=== PATIENT | female | born 1985 | race Two or more races ===

== ENCOUNTER 2024-11-24 18:40 | Inpatient (IN) | payer MEDICAID, OTHER ==
[~2024-11-24] VITALS: Ht 157.5 cm; Wt 78.0 kg
--- NOTE | 2024-11-24 18:58 | ED.PDOC ---
GI ASSESSMENT HPI Comments 39 y.o female presents to the ED for a chief complaint of left sided abdominal pain that has been ongoing for a couple of days. Patient reports having bariatric surgery 2 weeks ago in [place] and recently pulled the drainage tubes out herself at home. Patient reports there was no more draining. She denies any fever, chills, nausea, vomiting, diarrhea, SOB or chest pain. 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 Family History Family History: Family hx of DM Social History Smoker: Non-Smoker Alcohol: Denies ETOH Use Drugs: Marijuana Lives In: Home Constitutional: denies: chills, diaphoresis, fatigue, fever, malaise, sweats, weakness, others EENTM: denies: blurred vision, double vision, ear bleeding, ear discharge, ear drainage, ear pain, ear ringing, eye pain, eye redness, hearing loss, mouth pain, mouth swelling, nasal discharge, nose bleeding, nose congestion, nose pain, photophobia, tearing, throat pain, throat swelling, voice changes, others Respiratory: denies: cough, hemoptysis, orthopnea, SOB at rest, shortness of breath, SOB with excertion, stridor, wheezing, others Cardiovascular: denies: chest pain, dizzy spells, diaphoresis, Dyspnea on exertion, edema, irregular heart beat, left arm pain, lightheadedness, palpitations, PND, syncope, others Gastrointestinal: reports: abdominal pain; denies: abdomen distended, blood streaked bowels, constipated, diarrhea, dysphagia, difficulty swallowing, hematemesis, melena, nausea, poor appetite, poor fluid intake, rectal bleeding, rectal pain, vomiting, others Genitourinary: denies: abnormal vagina bleeding, burning, dyspareunia, dysuria, flank pain, frequency, hematuria, incontinence, pain, , vagina discharge, urgency, others Neurological: denies: dizziness, fainting, headache, left sided numbness, left sided weakness, numbness, paresthesia, pre-existing deficit, right sided numbness, right sided weakness, seizure, speech problems, tingling, tremors, weakness, others Musculoskeletal: denies: back pain, gout, joint pain, joint swelling, muscle pain, muscle stiffness, neck pain, others Integumetry: denies: bruises, change in color, change in hair/nails, dryness, laceration, lesions, lumps, rash, wounds, others Allergic/Immunocompromised: denies: Difficulty Healing, Frequent Infections, Hives, Itching, others Hematologic/Lymphatic: denies: anemia, blood clots, easy bleeding, easy bruising, swollen glands, others Endocrine: denies: excessive hunger, excessive sweating, excessive thirst, excessive urination, flushing, intolerance to cold, intolerance to heat, unexplained weight gain, unexplained weight loss, others Psychiatric: denies: anxiety, bipolar disorder, depression, hopeless, panic disorder, schizophrenia, sleepless, suicidal, others All Other Systems: Reviewed and Negative Physical Exam General Appearance: Moderate Distress HEENT: Normal ENT Inspection, Pharynx Normal, TMs Normal Neck: Full Range of Motion, Non-Tender, Normal, Normal Inspection Respiratory: Chest Non-Tender, Lungs Clear, No Accessory Muscle Use, No Respiratory Distress, Normal Breath Sounds Cardiovascular: No Edema, No JVD, No Murmur, No Gallop, Normal Peripheral Pulses, Regular Rate/Rhythm Breast Exam: Deferred Gastrointestinal: LLQ, LUQ, No Organomegaly, No Pulsatile Mass, Normal Bowel Sounds, Soft, Tenderness Genitalia: Deferred Pelvic: Deferred Rectal: Deferred Extremities: No calf tenderness, Normal capillary refill, Normal inspection, Normal range of motion, Non-tender, No pedal edema Musculoskeletal : Apperance: Normal Neurologic: Alert, 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 Was a procedure done?: No GI differential Dx Differential Diagnosis: Bowel Obstruction, Gastritis/PUD, Gastroenteritis, Ischemic Bowel, Trauma intraabdominal X-Ray, Labs, Meds, VS Vital Signs Date Time Temp Pulse Resp B/P (MAP) Pulse Ox O2 Delivery O2 Flow Rate FiO2 11/24/24 20:32 81 18 148/83 (104) 95 11/24/24 20:23 81 19 148/83 11/24/24 20:03 98 Room Air* 0 21 11/24/24 19:53 91 19 167/89 11/24/24 19:53 90 19 167/89 (115) 99 11/24/24 18:56 99.4 95 16 153/94 (113) 99 99.4 Lab Test 11/24/24 19:04 11/24/24 18:52 Range/Units White Blood Count 9.1 4.4-10.8 10^3/uL Red Blood Count 4.48 4.0-5.20 10^6/uL Hemoglobin 14.0 12.2-16.2 g/dL Hematocrit 40.7 36.0-46.0 % Mean Corpuscular Volume 90.9 80.0-100.0 fL Mean Corpuscular Hemoglobin 31.3 28.0-32.0 pg Mean Corpuscular Hemoglobin Concent 34.4 32.0-36.0 g/dL Red Cell Distribution Width 13.7 11.8-14.3 % Platelet Count 318 140-450 10^3/uL Mean Platelet Volume 8.9 6.9-10.8 fL Neutrophils (%) (Auto) 65.4 37.0-80.0 % Lymphocytes (%) (Auto) 26.3 10.0-50.0 % Monocytes (%) (Auto) 4.9 0.0-12.0 % Eosinophils (%) (Auto) 2.8 0.0-7.0 % Basophils (%) (Auto) 0.6 0.0-2.0 % Neutrophils # (Auto) 5.9 1.6-8.6 10 ^3/uL Lymphocytes # (Auto) 2.4 0.4-5.4 10 ^3/uL Monocytes # (Auto) 0.4 0-1.3 10 ^3/uL Eosinophils # (Auto) 0.3 0-0.8 10 ^3/uL Basophils # (Auto) 0.1 0-0.2 10 ^3/uL Nucleated Red Blood Cells 0.0 % Sodium Level 138 136-145 mmol/L Potassium Level 3.8 3.5-5.1 mmol/L Chloride Level 108 H 98-107 mmol/L Carbon Dioxide Level 21 20-31 mmol/L Anion Gap 9 5-15 Blood Urea Nitrogen 8 L 9-23 mg/dL Creatinine 0.49 L 0.550-1.02 mg/dL Glomerular Filtration Rate Calc 121 >90 mL/min BUN/Creatinine Ratio 16.3 10.0-20.0 Serum Glucose 111 H 74-106 mg/dL Calcium Level 9.3 8.7-10.4 mg/dL Urine Color Yellow Yellow Urine Clarity Turbid H Clear Urine pH 6.0 5.0-9.0 Urine Specific [place] 1.035 1.001-1.035 Urine Protein Trace H Negative Urine Ketones 2+ H Negative Urine Blood Trace H Negative /uL Urine Nitrite Negative Negative Urine Bilirubin Negative Negative Urine Urobilinogen 3 H Negative mg/dL Urine Leukocyte Esterase Negative Negative /uL Urine RBC 3 0 - 4 /hpf Urine Microscopic WBC 2 0-5 /HPF Urine Squamous Epithelial Cells Mod <5 /hpf Urine Bacteria Few H None Seen /hpf Urine Hyaline Casts Few 0 - 2 /lpf Urine Mucus Few None Seen Urine Glucose Normal Normal mg/dL Current Medications Medications (Trade) Dose Ordered Sig/Bernie Route Start Time Stop Time Status Last Admin Ondansetron HCl (Zofran) 4 mg ONCE ONCE IV 11/24/24 19:00 11/24/24 19:01 DC 11/24/24 19:52 Morphine Sulfate 4 mg ONCE ONCE IV 11/24/24 19:00 11/24/24 19:01 DC 11/24/24 19:53 IV Hep-Lock was established The urine test is negative at this time The patient was given morphine 4 mg IV push for the pain The patient was given Zofran 4 mg IV push for the nausea The CBC and chemistry panel are within normal limits The CAT scan of the abdomen and pelvis shows: Impression: 1. Status post recent sleeve gastrectomy with presumably postoperative pneumoperitoneum. Mild stranding in the operative site may reflect postsurgical inflammation versus developing infectious process. Further clinical correlation is recommended. 2. Stranding within the left anterior abdominal wall may be referable to inflammatory changes from recent procedure, though infectious process cannot be excluded. 3. Additional findings as detailed. Critical Result: Pneumoperitoneum (free air) We are consulting surgery at this time The patient is being admitted The patient is being placed on Flagyl and vancomycin Images Reviewed?: Images reviewed and evaluated by me Time of 1ST Reevaluation: 18:58 Reevaluation 1ST: Unchanged Patient Education/Counseling: Diagnosis, Treatment, Prognosis Family Education/Counseling: No Family Present SEPSIS Sepsis Screen Physician Orders Ct Ab Pel With Iv Con Only (11/24/24 18:55) Heplock Iv (11/24/24 18:55) *Consult Dr. Berry (11/24/24 21:23) Vital Signs Date Time Temp Pulse Resp B/P (MAP) Pulse Ox O2 Delivery O2 Flow Rate FiO2 11/24/24 20:32 81 18 148/83 (104) 95 11/24/24 20:23 81 19 148/83 11/24/24 20:03 98 Room Air* 0 21 11/24/24 19:53 91 19 167/89 11/24/24 19:53 90 19 167/89 (115) 99 11/24/24 18:56 99.4 95 16 153/94 (113) 99 99.4 Laboratory Tests Test 11/24/24 19:04 White Blood Count 9.1 10^3/uL (4.4-10.8) Medications Medications Dose Ordered Sig/Bernie Route Start Time Stop Time Status Last Admin Dose Admin Morphine Sulfate 4 mg ONCE ONCE IV 11/24/24 19:00 11/24/24 19:01 DC 11/24/24 19:53 Ondansetron HCl 4 mg ONCE ONCE IV 11/24/24 19:00 11/24/24 19:01 DC 11/24/24 19:52 Departure 1 Departure Time of Disposition: 21:23 Impression: Primary Impression: Intractable abdominal pain Disposition: 09 ADMITTED INPATIENT Admit to: Med Surg Condition: Fair Critical Care Note Critical Care Time?: No Stability Stability form required: Yes Unstable for transfer: ED Physician Assesment (Clinical assesment) I personally scribed for RICARDO DURAN MD ([email or web address]) on 11/24/24 at 18:58. Electronically submitted by Adelita Rust ([email or web address]). I personally scribed for RICARDO DURAN MD ([email or web address]) on 11/24/24 at 21:19. Electronically submitted by Bossman Esteban ([email or web address]). RICARDO DURAN MD Nov 24, 2024 18:58
[2024-11-24 19:18] LABS: Hematocrit 40.7 % (36.0-46.0); Hemoglobin 14.0 g/dL (12.2-16.2); Mean Corpuscular Hemoglobin 31.3 pg (28.0-32.0); Mean Corpuscular Volume 90.9 fL (80.0-100.0); Nucleated Red Blood Cells % 0.0 %
[2024-11-24 19:25] LABS: Potassium 3.8 mmol/L (3.5-5.1); Sodium 138 mmol/L (136-145)
[2024-11-24 19:26] LABS: Anion Gap 9 (5-15); Calcium 9.3 mg/dL (8.7-10.4); Carbon Dioxide 21 mmol/L (20-31)
[2024-11-24 19:29] LABS: Chloride 108 mmol/L (98-107)
[2024-11-24 19:31] LABS: BUN/Creatinine Ratio 16.3 (10.0-20.0); Blood Urea Nitrogen 8 mg/dL (9-23); Glucose 111 mg/dL (74-106)
[2024-11-24] MEDS: ONDANSETRON HCL 4 MG/2 ML VIAL IV ONE (19:52)
[2024-11-24] MEDS: MORPHINE SULFATE 4 MG/ML SYR/VIAL IV ONE (19:53)
[2024-11-24 20:03] VITALS: O2SAT 98
[2024-11-24 20:05] LABS: Urine Protein, UAD TRACE (Negative)
[2024-11-24] MEDS: IOHEXOL 300 MG/ML 100ML BOTTLE IJ ONE (20:14)
--- NOTE | 2024-11-24 21:21 | DVH ---
Exam: CT CT AB PEL WITH IV CON ONLY History: Left-sided abdominal pain Comparison Study: None TECHNIQUE: A digital medical imaging tech image was obtained. During the uneventful, intravenous administration of c ontrast material, multislice data acquisition was obtained through the abdomen and pelvis. The data s et was subsequently reconstructed into multiplanar reformats. RADIATION DOSE: CTDI vol 14.54 mGy. DLP mGy.cm Findings: Liver: Unremarkable. Spleen: Unremarkable. Pancreas: Unremarkable. Gallbladder: Unremarkable. Adrenals: Unremarkable Kidneys: Unremarkable. Pelvic Viscera: 2.2 cm right adnexal cyst. Vasculature: Unremarkable. Retroperitoneum: Shotty retroperitoneal nodes. Bowel: Status post recent sleeve gastrectomy with mild adjacent stranding. There is pneumoperitoneum most pronounced within the upper abdomen. Musculoskeletal: Unremarkable. Soft tissues: There is a low-density rim enhancing small region in the left anterior abdominal wall m easuring 6 mm in greatest thickness, with adjacent stranding which appears to extend to the skin surf billie. Lungs: The lung bases are clear. Bilateral breast implants. Impression: 1. Status post recent sleeve gastrectomy with presumably postoperative pneumoperitoneum. Mild strandi ng in the operative site may reflect postsurgical inflammation versus developing infectious process. Further clinical correlation is recommended. 2. Stranding within the left anterior abdominal wall may be referable to inflammatory changes from re cent procedure, though infectious process cannot be excluded. 3. Additional findings as detailed. Critical Result: Pneumoperitoneum (free air) Findings discussed with RICARDO DURAN at 11/24/2024 09:16 PM, and acknowledged receipt and understand ing of the findings.
--- NOTE | 2024-11-25 00:24 | DVHHP2 ---
History of Present Illness Reason for Visit: Abdominal pain History of Present Illness 39-year-old female presents for evaluation of left-sided abdominal pain. Patient reports having bariatric surgery in [place] two weeks ago. Patient was discharged with a YOU drain to her left abdomen. She states that since (three days ago) she has been having left-sided pain at the YOU drain site. She states that Monday the pain continued so she pulled the YOU drain out since there was hardly any drainage. She reports having continuous sharp pain at the drain site. Denies fever or chills. No nausea or vomiting. No other acute complaints. Past Medical History Denies Past Surgical History , bariatric surgery Family History Noncontributory Smoke: No ALCOHOL: none Drugs: Marijuana Lives: with Family Review of Systems Review of Systems Review of systems are currently negative otherwise addressed in HPI. Allergies: Coded Allergies: NO KNOWN ALLERGIES (Unverified , 11/24/24) Exam Vital Signs Vital Signs Date Time Temp Pulse Resp B/P (MAP) Pulse Ox O2 Delivery O2 Flow Rate FiO2 11/24/24 20:32 81 18 148/83 (104) 95 11/24/24 20:03 Room Air* 0 21 11/24/24 18:56 99.4 99.4 Exam Gen: 39-year-old female in mild distress Skin: Warm, dry, normal color and texture, no rash. HEENT: Normocephalic atraumatic, mucous membranes moist and pink. Neck: Cervical and supraclavicular nodes normal without enlargement, trachea is midline, thyroid gland is normal without masses. Pulmonary: Clear to auscultation and percussion bilaterally. Cardiac: Regular rate and rhythm. No murmur Abdomen: Soft, nontender, nondistended, bowel sounds present all 4 quadrants, no guarding, no rigidity, no organomegaly. Extremities: No cyanosis, clubbing, left mid abdomen tenderness Neuro: Cranial nerves II through XII grossly intact, normal affect and speech, no focal motor deficits. Labs/Xrays ORDERING PHYSICIAN: RICARDO DURAN MD PROCEDURE(s): ABPLIV - CT AB PEL WITH IV CON ONLY REASON: Left-sided abdominal pain ORDER NUMBER(s): [id number], ACCESSION NUMBER(s): [id number] Exam: CT CT AB PEL WITH IV CON ONLY History: Left-sided abdominal pain Comparison Study: None TECHNIQUE: A digital junior administrative assistant image was obtained. During the uneventful, intravenous administration of contrast material, multislice data acquisition was obtained through the abdomen and pelvis. The data set was subsequently reconstructed into multiplanar reformats. RADIATION DOSE: CTDI vol 14.54 mGy. DLP mGy.cm Findings: Liver: Unremarkable. Spleen: Unremarkable. Pancreas: Unremarkable. Gallbladder: Unremarkable. Adrenals: Unremarkable Kidneys: Unremarkable. Pelvic Viscera: 2.2 cm right adnexal cyst. Vasculature: Unremarkable. Retroperitoneum: Shotty retroperitoneal nodes. Bowel: Status post recent sleeve gastrectomy with mild adjacent stranding. There is pneumoperitoneum most pronounced within the upper abdomen. Musculoskeletal: Unremarkable. Soft tissues: There is a low-density rim enhancing small region in the left anterior abdominal wall measuring 6 mm in greatest thickness, with adjacent stranding which appears to extend to the skin surface. Lungs: The lung bases are clear. Bilateral breast implants. Impression: 1. Status post recent sleeve gastrectomy with presumably postoperative pneumoperitoneum. Mild stranding in the operative site may reflect postsurgical inflammation versus developing infectious process. Further clinical correlation is recommended. 2. Stranding within the left anterior abdominal wall may be referable to inflammatory changes from recent procedure, though infectious process cannot be excluded. 3. Additional findings as detailed. Critical Result: Pneumoperitoneum (free air) Findings discussed with RICARDO DURAN at 11/24/2024 09:16 PM, and acknowledged receipt and understanding of the findings. ATED BY: SMITA STARK MD Labs Test 11/24/24 19:04 11/24/24 18:52 Range/Units White Blood Count 9.1 4.4-10.8 10^3/uL Red Blood Count 4.48 4.0-5.20 10^6/uL Hemoglobin 14.0 12.2-16.2 g/dL Hematocrit 40.7 36.0-46.0 % Mean Corpuscular Volume 90.9 80.0-100.0 fL Mean Corpuscular Hemoglobin 31.3 28.0-32.0 pg Mean Corpuscular Hemoglobin Concent 34.4 32.0-36.0 g/dL Red Cell Distribution Width 13.7 11.8-14.3 % Platelet Count 318 140-450 10^3/uL Mean Platelet Volume 8.9 6.9-10.8 fL Neutrophils (%) (Auto) 65.4 37.0-80.0 % Lymphocytes (%) (Auto) 26.3 10.0-50.0 % Monocytes (%) (Auto) 4.9 0.0-12.0 % Eosinophils (%) (Auto) 2.8 0.0-7.0 % Basophils (%) (Auto) 0.6 0.0-2.0 % Neutrophils # (Auto) 5.9 1.6-8.6 10 ^3/uL Lymphocytes # (Auto) 2.4 0.4-5.4 10 ^3/uL Monocytes # (Auto) 0.4 0-1.3 10 ^3/uL Eosinophils # (Auto) 0.3 0-0.8 10 ^3/uL Basophils # (Auto) 0.1 0-0.2 10 ^3/uL Nucleated Red Blood Cells 0.0 % Sodium Level 138 136-145 mmol/L Potassium Level 3.8 3.5-5.1 mmol/L Chloride Level 108 H 98-107 mmol/L Carbon Dioxide Level 21 20-31 mmol/L Anion Gap 9 5-15 Blood Urea Nitrogen 8 L 9-23 mg/dL Creatinine 0.49 L 0.550-1.02 mg/dL Glomerular Filtration Rate Calc 121 >90 mL/min BUN/Creatinine Ratio 16.3 10.0-20.0 Serum Glucose 111 H 74-106 mg/dL Calcium Level 9.3 8.7-10.4 mg/dL Urine Color Yellow Yellow Urine Clarity Turbid H Clear Urine pH 6.0 5.0-9.0 Urine Specific [place] 1.035 1.001-1.035 Urine Protein Trace H Negative Urine Ketones 2+ H Negative Urine Blood Trace H Negative /uL Urine Nitrite Negative Negative Urine Bilirubin Negative Negative Urine Urobilinogen 3 H Negative mg/dL Urine Leukocyte Esterase Negative Negative /uL Urine RBC 3 0 - 4 /hpf Urine Microscopic WBC 2 0-5 /HPF Urine Squamous Epithelial Cells Mod <5 /hpf Urine Bacteria Few H None Seen /hpf Urine Hyaline Casts Few 0 - 2 /lpf Urine Mucus Few None Seen Urine Glucose Normal Normal mg/dL SEPSIS Sepsis Screen Date sepsis recognized/suspect: Nov 24, 2024 Time Sepsis recognized/suspect: 1958 Recent Procedure: No On Antibiotic Therapy: No Respiratory Rate >20: No Heart Rate >90: Yes Temp<36 C (96.8 F) or >38.3 C: No SBP <90 or MAP <65 mmHG: No New Acute Mental Status Change: No Is the patient on CPAP, BIPAP,: No Physician Orders Ct Ab Pel With Iv Con Only (11/24/24 18:55) Heplock Iv (11/24/24 18:55) *Consult Dr. Berry (11/24/24 21:23) Vital Signs Date Time Temp Pulse Resp B/P (MAP) Pulse Ox O2 Delivery O2 Flow Rate FiO2 11/24/24 20:32 81 18 148/83 (104) 95 11/24/24 20:23 81 19 148/83 11/24/24 20:03 98 Room Air* 0 21 11/24/24 19:53 91 19 167/89 11/24/24 19:53 90 19 167/89 (115) 99 11/24/24 18:56 99.4 95 16 153/94 (113) 99 99.4 Laboratory Tests Test 11/24/24 19:04 White Blood Count 9.1 10^3/uL (4.4-10.8) Medications Medications Dose Ordered Sig/Bernie Route Start Time Stop Time Status Last Admin Dose Admin Morphine Sulfate 4 mg ONCE ONCE IV 11/24/24 19:00 11/24/24 19:01 DC 11/24/24 19:53 4 MG Ondansetron HCl 4 mg ONCE ONCE IV 11/24/24 19:00 11/24/24 19:01 DC 11/24/24 19:52 4 MG Assessment/Plan Assessment/Plan Assessment Pneumoperitoneum Pulse surgical complication Plan Admit the patient to [facility] to the hospitalist Surgical consultation Maintenance IV fluids NPO Pain management Zosyn Continue treatment per orders. Plan discussed with: Patient Date of Service: Nov 25, 2024 Billing Provider: ERNESTO RODRIGUEZ Common Visit Codes: [id number] INP/OBS CARE (HIGH) ERNESTO RODRIGUEZ Nov 25, 2024 00:24
[2024-11-25] MEDS: SODIUM CHLORIDE 0.9% 1,000 ML IV ONE (00:45)
[2024-11-25 01:15] LABS: INR 1.02 (0.9-1.15); Partial Thromboplastin Time 31.8 SEC (24.5-34.5); Prothrombin Time 10.8 sec (9.3-11.8)
[2024-11-25] MEDS: MORPHINE SULFATE INJ 2 MG/ml SYRG IV PRN (02:30)
[2024-11-25] MEDS: ONDANSETRON HCL 4 MG/2 ML VIAL IV PRN (02:30)
[2024-11-25 03:40] VITALS: BP 121/73; PULSE 62; RESP 16; TEMP 98.3; O2SAT 97
[2024-11-25 04:15] VITALS: BP 121/73; PULSE 62; RESP 17; TEMP 98.3; O2SAT 97
[2024-11-25] MEDS: PIPERACILLIN-TAZOB 3.375GM 100 ML IV SCH (05:25)
[2024-11-25 05:37] LABS: Hematocrit 39.9 % (36.0-46.0); Hemoglobin 13.8 g/dL (12.2-16.2); Mean Corpuscular Hemoglobin 31.5 pg (28.0-32.0); Mean Corpuscular Volume 91.3 fL (80.0-100.0); Nucleated Red Blood Cells % 0.1 %
[2024-11-25 05:48] LABS: Alanine Aminotransferase 15 U/L (7-40); Albumin 4.2 g/dL (3.2-4.8); Alkaline Phosphatase 70 U/L (46-116); Anion Gap 11 (5-15); BUN/Creatinine Ratio 12.8 (10.0-20.0); Calcium 9.3 mg/dL (8.7-10.4); Carbon Dioxide 24 mmol/L (20-31); Chloride 105 mmol/L (98-107); Glucose 87 mg/dL (74-106); Sodium 140 mmol/L (136-145); Total Protein 6.7 g/dL (5.7-8.2)
[2024-11-25 05:49] LABS: Bilirubin, Total 0.3 mg/dL (0.2-1.0)
[2024-11-25 06:00] LABS: Blood Urea Nitrogen 6 mg/dL (9-23); Potassium 3.4 mmol/L (3.5-5.1)
[2024-11-25] MEDS: PANTOPRAZOLE 40 MG/10 ML VIAL INJ IV SCH (08:54)
[2024-11-25 09:00] VITALS: BP 120/77; PULSE 52; RESP 14; TEMP 98.2; O2SAT 98
[2024-11-25] MEDS ORDERED: POTASSIUM EFFERVESENT TAB 25 MEQ PO ONE (09:30)
[2024-11-25] MEDS ORDERED: NAPROXEN 500 MG TAB PO PRN (09:45)
[2024-11-25] MEDS: POTASSIUM CHL 20MEQ/100ML 100 ML IV ONE (11:18)
[2024-11-25] MEDS ORDERED: GASTROGRAFIN 120 ML SOL ONE (11:56)
[2024-11-25 13:00] VITALS: BP_SYST 102; BP_SYST 105; BP_DIAS 43; BP_DIAS 67; PULSE 54; PULSE 60; RESP 14; TEMP 97.9; TEMP 98.2; O2SAT 98; O2SAT 99
--- NOTE | 2024-11-25 13:01 | DVH ---
XY UGI WITH GASTROGRAFIN, HISTORY: r/o extravasation from sleeve gastrectomy COMPARISON: None PROCEDURE: A legal instruments examiner radiograph was obtained prior to the procedure. Gastrografin administered orally, and radiographs were obtained under intermittent fluoroscopic observation. Total fluoroscopic time w as 1 minute. FINDINGS: The legal instruments examiner image demonstrates no evidence for obstruction or free intraperitoneal gas. Surgical suture s are seen in the LUQ. The esophagus was normal in caliber with no stricture, filling defect or wall irregularity demonstrat ed. Normal esophageal peristalsis was observed. There was prompt passage of contrast through gastroesophageal junction. The stomach was not distended due to the partial gastrectomy. A filling defect in the proximal stomach at the lesser curvature is probably due to a mucosal fold. The duodenal bulb demonstrated no stricture or ulceration. Contrast flowed into more distal loops of small bowel, with no abnormality identified. No extravasation is seen. IMPRESSION: Stomach was not distended due to the partial gastrectomy. No contrast extravasation visualized to suggest for leak. A filling defect in the proximal stomach at the lesser curvature is probably due to a mucosal fold.
--- NOTE | 2024-11-25 14:28 | DVHINCON2 ---
Date of service: Nov 25, 2024 Reason for Consultation s/p gastrectomy, abdominal pain History of Present Illness History Source: Patient, Notes HPI 39-year-old female presents for evaluation of left-sided abdominal pain. Patient reports having bariatric surgery in [place] two weeks ago. Patient was discharged with a YOU drain to her left abdomen. She states that since (three days ago) she has been having left-sided pain at the YOU drain site. She states that Monday the pain continued so she pulled the YOU drain out since there was hardly any drainage. She reports having continuous sharp pain at the drain site. Denies fever or chills. No nausea or vomiting. No other acute complaints. Home Meds No Active Prescriptions or Reported Meds Chief Complaint of Abdominal/F: Abdominal pain Abdominal Pain Radiation: LLQ Past Medical History Cardiac: No pertinent Hx Pulmonary: No pertinent Hx Central Nervous System: No pertinent Hx GI: No pertinent Hx Hemotology/Oncology: No pertinent Hx Hepatobiliary: No pertinent Hx Psychiatric: No pertinent Hx Musculoskeletal: No pertinent Hx Rheumotologic: No pertinent Hx Infectious Disease: No peritnent Hx ENT: No pertinent Hx Renal/: No pertinent Hx Endocrine: No pertinent Hx Dermatology: No pertinent Hx Past Surgical History: Others bariatric surgery Patient Family History: Hypertension G8 MOTHER Smoker: No Hx (Negative) Alocohol: None Drugs: Marijuana Lives with: With family Review of Systems Constitutional: No symptom reported Ears, Nose, & Throat: No symptom reported Eyes: No symptom reported Pulmonary/Respiratory: No symptom reported Cardiovascular: No symptom reported Gastrointestinal: Abdominal Pain (left side) Genitourinary: No symptom reported Musculoskeletal: No symptom reported Skin: No symptom reported Psychiatric: No symptom reported Endocrine: No symptom reported Hemotologic/Lymphatic: No symptom reported H&P Exam Vital Signs Vital Signs Date Time Temp Pulse Resp B/P (MAP) Pulse Ox O2 Delivery O2 Flow Rate FiO2 11/25/24 13:00 98.2 60 14 105/43 (63) 99 98.2 11/25/24 08:04 Room Air* 0 21 General Appeara: Well developed, Well nourished, Normal Appearance Head Exam: Normal inspection Neck Exam: Normal inspection, Non-tender Nasal Exam: Normal inspection Mouth: Normal Inspection Pulmonary/Respiratory: Normal inspection Cardiovascular/Chest: Normal inspection, Edema Abdominal Exam: Normal bowel sounds Abdominal Pain Onset Location: LLQ Back Exam: Normal inspection Neuro/Mental St: Alert, Oriented Appearance: Appropriate appearance Eye contact/ Speech: Cooperative, Good eye contact Thoughts/Psych: Normal thought pattern Skin Exam: Normal inspection Lymphatic: Normal inspection Labs/Xrays Labs Test 11/25/24 03:59 11/25/24 00:35 11/24/24 18:52 Range/Units White Blood Count 9.8 4.4-10.8 10^3/uL Red Blood Count 4.37 4.0-5.20 10^6/uL Hemoglobin 13.8 12.2-16.2 g/dL Hematocrit 39.9 36.0-46.0 % Mean Corpuscular Volume 91.3 80.0-100.0 fL Mean Corpuscular Hemoglobin 31.5 28.0-32.0 pg Mean Corpuscular Hemoglobin Concent 34.5 32.0-36.0 g/dL Red Cell Distribution Width 13.6 11.8-14.3 % Platelet Count 324 140-450 10^3/uL Mean Platelet Volume 9.4 6.9-10.8 fL Neutrophils (%) (Auto) 60.4 37.0-80.0 % Lymphocytes (%) (Auto) 31.2 10.0-50.0 % Monocytes (%) (Auto) 5.0 0.0-12.0 % Eosinophils (%) (Auto) 2.9 0.0-7.0 % Basophils (%) (Auto) 0.5 0.0-2.0 % Neutrophils # (Auto) 5.9 1.6-8.6 10 ^3/uL Lymphocytes # (Auto) 3.1 0.4-5.4 10 ^3/uL Monocytes # (Auto) 0.5 0-1.3 10 ^3/uL Eosinophils # (Auto) 0.3 0-0.8 10 ^3/uL Basophils # (Auto) 0 0-0.2 10 ^3/uL Nucleated Red Blood Cells 0.1 % Sodium Level 140 136-145 mmol/L Potassium Level 3.4 L 3.5-5.1 mmol/L Chloride Level 105 98-107 mmol/L Carbon Dioxide Level 24 20-31 mmol/L Anion Gap 11 5-15 Blood Urea Nitrogen 6 L 9-23 mg/dL Creatinine 0.47 L 0.550-1.02 mg/dL Glomerular Filtration Rate Calc 123 >90 mL/min BUN/Creatinine Ratio 12.8 10.0-20.0 Serum Glucose 87 74-106 mg/dL Calcium Level 9.3 8.7-10.4 mg/dL Total Bilirubin 0.3 0.2-1.0 mg/dL Aspartate Amino Transferase (AST) 14 13-40 U/L Alanine Aminotransferase (ALT) 15 7-40 U/L Alkaline Phosphatase 70 46-116 U/L Total Protein 6.7 5.7-8.2 g/dL Albumin 4.2 3.2-4.8 g/dL Prothrombin Time 10.8 9.3-11.8 sec Prothrombin Time INR 1.02 0.9-1.15 Activated Partial Thromboplast Time 31.8 24.5-34.5 SEC Urine Color Yellow Yellow Urine Clarity Turbid H Clear Urine pH 6.0 5.0-9.0 Urine Specific [place] 1.035 1.001-1.035 Urine Protein Trace H Negative Urine Ketones 2+ H Negative Urine Blood Trace H Negative /uL Urine Nitrite Negative Negative Urine Bilirubin Negative Negative Urine Urobilinogen 3 H Negative mg/dL Urine Leukocyte Esterase Negative Negative /uL Urine RBC 3 0 - 4 /hpf Urine Microscopic WBC 2 0-5 /HPF Urine Squamous Epithelial Cells Mod <5 /hpf Urine Bacteria Few H None Seen /hpf Urine Hyaline Casts Few 0 - 2 /lpf Urine Mucus Few None Seen Urine Glucose Normal Normal mg/dL Assessment/Plan Plan abdomen tender over YOU drain site wound, Review of XY UGI WITH GASTROGRAFIN Stomach was not distended due to the partial gastrectomy. No contrast extravasation visualized to suggest for leak. A filling defect in the proximal stomach at the lesser curvature is probably due to a mucosal fold. Plan: IV antibiotics warm compress over the area Plan discussed with: Patient Visit Coding Surgery Date of Service if different f: Nov 25, 2024 Billing Provider: NED VENTURA MD Surgery Visit Codes: [id number] INP/OBS CARE(HIGH) AGUSTINA TIRADO NP Nov 25, 2024 14:28
[2024-11-25] MEDS: D5W/SOD CHLO 0.9% 1,000 ML IV ONE (15:34)
--- NOTE | 2024-11-25 16:46 | DVHPNRES ---
Progress Note Date Seen: Nov 25, 2024 Resident Creating Document: ABDELRAHMAN AGUIRRE RESIDENT Has the PT tested + for MRSA If YES, has PT been informed?: No Medical Necessity Reason Pt with a Central, PICC or Fol: No Subjective Review of Systems This is a 39-year-old female without past relevant medical history, presents for evaluation of left-sided abdominal pain, the patient reports having bariatric surgery in [place] two weeks ago. After the surgery was discharged f with a YOU drain to her left abdomen. She states that since (three days ago) she has been having left-sided pain at the YOU drain site. She states that Monday the pain continued so she pulled the YOU drain out since there was hardly any drainage. She reports having continuous sharp pain at the drain site. Denies fever or chills, no nausea or vomiting. No other acute complaints. 11/25/24: Today, the patient was examined at the bedside. Vital signs and laboratories were reviewed and are remarkable. Surgery is onboard, they advised IV antibiotics, warm compress over the area, resume diet with full liquids. Patient denies fever, chills, nausea or vomit. We will follow up closely with this patient. ROS: Constitutional: Alert, Denies weight loss, fever and chills. HEENT: Denies changes in vision and hearing. Respiratory: Denies shortness of breath and cough Cardiovascular: Denies chest discomfort or palpitations GI: abdominal pain on left flank over surgical site, Denies nausea, vomiting and diarrhea. : Denies dysuria and urinary frequency. Musculoskeletal: Denies myalgias and joint pain Skin: Denies rash and pruritus. Neurological: Denies dizziness, headache, vision or hearing problems Objective vital signs Vital Sign Date Time Temp Pulse Resp B/P (MAP) Pulse Ox O2 Delivery O2 Flow Rate FiO2 11/25/24 13:00 98.2 60 14 105/43 (63) 99 98.2 11/25/24 08:04 Room Air* 0 21 Total Intake and Output 11/24/24 11/24/24 11/25/24 15:00 23:00 07:00 Intake Total 0 ml Output Total 0 ml Balance 0 ml medications Current Medications Medications Dose Ordered Sig/Bernie Route Start Time Stop Time Status Last Admin Dose Admin Pantoprazole Sodium 40 mg DAILY IV 11/25/24 10:00 11/25/24 08:54 40 MG Ondansetron HCl 4 mg Q4HP PRN IV 11/25/24 00:15 11/25/24 11:59 4 MG Morphine Sulfate 2 mg Q4HPRN PRN IV 11/25/24 00:15 11/25/24 12:00 2 MG Piperacillin Sod/ Tazobactam Sod 100 ml @ 25 mls/hr Q8HR IV 11/25/24 06:00 11/25/24 14:44 25 MLS/HR Naproxen 500 mg Q12HP PRN PO 11/25/24 09:45 Examination Gen: 39-year-old female in mild distress Skin: Warm, dry, normal color and texture, no rash. HEENT: Normocephalic atraumatic, mucous membranes moist and pink. Neck: Cervical and supraclavicular nodes normal without enlargement, trachea is midline, thyroid gland is normal without masses. Pulmonary: Clear to auscultation and percussion bilaterally. Cardiac: Regular rate and rhythm. No murmur Abdomen: Soft, nontender, nondistended, bowel sounds present all 4 quadrants, no guarding, no rigidity, no organomegaly. Pain localized on left flank over the surgical incision, with warm and redness over the skin. No drainage. Extremities: No cyanosis, clubbing, left mid abdomen tenderness Neuro: Cranial nerves II through XII grossly intact, normal affect and speech, no focal motor deficits. laboratory and microbiology Laboratory Tests 11/25/24 03:59 Test 11/25/24 03:59 Range/Units Serum Glucose 87 74-106 mg/dL Problem List/Assessment/Plan Problem List/Assessment/Plan Assessment/ Plan # Acute abdominal pain likely due to Infection of the surgical site. -Gatrografin series. -NPO -Surgical consult #Infection of the surgical site (Status Post bariatric surgery in [place]) Miah 2mg IV for severe pain. Ampicillin/ tazobactam IV #Rullig out Pneumoperitoneum CT scan: Status post recent sleeve gastrectomy with presumably postoperative pneumoperitoneum. Mild stranding in the operative site may reflect postsurgical inflammation versus developing infectious process. Surgical consultation: advised IV antibiotics and warm compress over the area, continue with full liquid diet. Maintenance IV fluids #Status Post bariatric surgery (in [place]) #Obesity Goals of care discussions, more than 35 minute spent. Code status:Full code Case discussed with Dr. Flower Continue treatment per orders. Plan discussed with: Patient, patient agrees with plan. Plan discussed with: Patient My Orders My Orders Orders - ABDELRAHMAN AGUIRRE Procedure Category Date Status Time Potassium & Magnesium NGA 11/25/24 In Process Levels: 14:38 D5w/Sod Chlo 0.9% PHA 11/25/24 In Process (D5w Ns 0.9%) 14:45 Complete Blood Count LAB 11/26/24 Verified 04:00 Comprehensive LAB 11/26/24 Verified Metabolic Panel 04:00 Warm Compresses ORDERS 11/25/24 Transmitted 15:30 Potassium LAB 11/25/24 Logged 16:40 Magnesium LAB 11/25/24 Logged 16:40 Magnesium LAB 11/26/24 Verified 04:00 ABDELRAHMAN AGUIRRE RESIDENT Nov 25, 2024 16:46
[2024-11-25 17:00] VITALS: BP 118/77; PULSE 74; RESP 14; TEMP 98.4; O2SAT 97
[2024-11-25 17:59] LABS: Potassium 4.2 mmol/L (3.5-5.1)
[2024-11-25 18:20] LABS: Magnesium 1.9 mg/dL (1.6-2.6)
[2024-11-25 21:00] VITALS: BP 117/76; PULSE 67; RESP 18; TEMP 98.4; O2SAT 99
[2024-11-26 01:00] VITALS: BP 113/82; PULSE 65; RESP 18; TEMP 98.5; O2SAT 99
[2024-11-26 05:00] VITALS: BP 119/82; PULSE 63; RESP 17; TEMP 98.2; O2SAT 98
[2024-11-26 05:33] LABS: Hematocrit 36.9 % (36.0-46.0); Hemoglobin 12.5 g/dL (12.2-16.2); Mean Corpuscular Hemoglobin 30.8 pg (28.0-32.0); Mean Corpuscular Volume 90.9 fL (80.0-100.0); Nucleated Red Blood Cells % 0.0 %
[2024-11-26 05:47] LABS: Alanine Aminotransferase 13 U/L (7-40); Albumin 3.9 g/dL (3.2-4.8); Alkaline Phosphatase 63 U/L (46-116); Anion Gap 8 (5-15); BUN/Creatinine Ratio 10.5 (10.0-20.0); Bilirubin, Total 0.5 mg/dL (0.2-1.0); Calcium 9.7 mg/dL (8.7-10.4); Carbon Dioxide 26 mmol/L (20-31); Chloride 105 mmol/L (98-107); Glucose 96 mg/dL (74-106); Magnesium 1.9 mg/dL (1.6-2.6); Sodium 139 mmol/L (136-145); Total Protein 6.2 g/dL (5.7-8.2)
[2024-11-26 05:50] LABS: Blood Urea Nitrogen 6 mg/dL (9-23); Potassium 3.5 mmol/L (3.5-5.1)
[2024-11-26 08:56] VITALS: BP 122/80; PULSE 60; RESP 18; TEMP 98.5; O2SAT 97
[2024-11-26 13:30] VITALS: BP 134/88; PULSE 60; RESP 18; TEMP 98.3; O2SAT 98
[2024-11-26] MEDS ORDERED: AUG875T PO (14:24)
[2024-11-26] MEDS ORDERED: NAP500T PO (14:25)
--- NOTE | 2024-11-26 16:12 | DVHDSRES ---
Discharge Summary Date of Admission Resident Creating Document: ABDELRAHMAN AGUIRRE RESIDENT Nov 25, 2024 at 00:12 Date of Discharge: Nov 26, 2024 Labs/Diagnostic Data: Laboratory Results Test 11/26/24 04:44 11/25/24 00:35 11/24/24 18:52 White Blood Count 7.8 10^3/uL (4.4-10.8) Red Blood Count 4.06 10^6/uL (4.0-5.20) Hemoglobin 12.5 g/dL (12.2-16.2) Hematocrit 36.9 % (36.0-46.0) Mean Corpuscular Volume 90.9 fL (80.0-100.0) Mean Corpuscular Hemoglobin 30.8 pg (28.0-32.0) Mean Corpuscular Hemoglobin Concent 33.9 g/dL (32.0-36.0) Red Cell Distribution Width 13.6 % (11.8-14.3) Platelet Count 320 10^3/uL (140-450) Mean Platelet Volume 8.7 fL (6.9-10.8) Neutrophils (%) (Auto) 57.9 % (37.0-80.0) Lymphocytes (%) (Auto) 32.4 % (10.0-50.0) Monocytes (%) (Auto) 5.3 % (0.0-12.0) Eosinophils (%) (Auto) 3.9 % (0.0-7.0) Basophils (%) (Auto) 0.5 % (0.0-2.0) Neutrophils # (Auto) 4.5 10 ^3/uL (1.6-8.6) Lymphocytes # (Auto) 2.5 10 ^3/uL (0.4-5.4) Monocytes # (Auto) 0.4 10 ^3/uL (0-1.3) Eosinophils # (Auto) 0.3 10 ^3/uL (0-0.8) Basophils # (Auto) 0 10 ^3/uL (0-0.2) Nucleated Red Blood Cells 0.0 % Sodium Level 139 mmol/L (136-145) Potassium Level 3.5 mmol/L (3.5-5.1) Chloride Level 105 mmol/L (98-107) Carbon Dioxide Level 26 mmol/L (20-31) Anion Gap 8 (5-15) Blood Urea Nitrogen 6 mg/dL (9-23) Creatinine 0.57 mg/dL (0.550-1.02) Glomerular Filtration Rate Calc 117 mL/min (>90) BUN/Creatinine Ratio 10.5 (10.0-20.0) Serum Glucose 96 mg/dL (74-106) Calcium Level 9.7 mg/dL (8.7-10.4) Magnesium Level 1.9 mg/dL (1.6-2.6) Total Bilirubin 0.5 mg/dL (0.2-1.0) Aspartate Amino Transferase (AST) 14 U/L (13-40) Alanine Aminotransferase (ALT) 13 U/L (7-40) Alkaline Phosphatase 63 U/L (46-116) Total Protein 6.2 g/dL (5.7-8.2) Albumin 3.9 g/dL (3.2-4.8) Prothrombin Time 10.8 sec (9.3-11.8) Prothrombin Time INR 1.02 (0.9-1.15) Activated Partial Thromboplast Time 31.8 SEC (24.5-34.5) Urine Color Yellow (Yellow) Urine Clarity Turbid (Clear) Urine pH 6.0 (5.0-9.0) Urine Specific [place] 1.035 (1.001-1.035) Urine Protein Trace (Negative) Urine Ketones 2+ (Negative) Urine Blood Trace /uL (Negative) Urine Nitrite Negative (Negative) Urine Bilirubin Negative (Negative) Urine Urobilinogen 3 mg/dL (Negative) Urine Leukocyte Esterase Negative /uL (Negative) Urine RBC 3 /hpf (0 - 4) Urine Microscopic WBC 2 /HPF (0-5) Urine Squamous Epithelial Cells Mod /hpf (<5) Urine Bacteria Few /hpf (None Seen) Urine Hyaline Casts Few /lpf (0 - 2) Urine Mucus Few (None Seen) Urine Glucose Normal mg/dL (Normal) Other Laboratory Tests 11/26/24 04:44 Brief Hx & Hospital Course: Ms. Ophelia Busby, a 39-year-old female without relevant past medical history, was seen on the ED on 11/25 for evaluation of left-sided abdominal pain. The patient reported that she had a bariatric surgery performed in [place] on 11/11 . After the surgery was discharged home with a YOU drain to her left abdomen that was draining serousanguinous liquid. She states that on 11/21, (ten days post the procedure), she started having left-sided pain, warm and erythema at the YOU drain site; she states that on 11/22(eleven days post the procedure) the pain continued and the YOU drain was not draining anymore so she pulled the YOU drain out. Since the she started having continues, sharp pain, 8/10 on the site of the YOU drain was located. Om the day of the admission she denied fever or chills, no nausea or vomiting. On the first day of admission, abdominal CT scan showed: "status post recent sleeve gastrectomy with presumably postoperative pneumoperitoneum. Mild stranding in the operative site may reflect postsurgical inflammation versus developing infectious process". Surgery team was consulted, they ruled out need of surgical intervention and advised continue with IV antibiotics ( IV piperacillin/tazobactam) , warm compress over the area and, resume diet with full liquids. Today, the patient reports improvement of pain 2/10, denies fever, chills, nausea or vomit. There is clinical improvement on the infection site improvement on erythema and warmth . Regular diet was initiated, the patient tolerated it well . Today's Laboratories and vital signs are unremarkable. The patient will be discharged today with oral antibiotic, Augmentin 875/125mg po bid for 5 days, naproxen 500 mg po for pain, and follow up with PCP and surgery in one week. Discharge Plan: -Discharge home -Augmentin 875/125mg po bid for 5 days -Naproxen 500 mg po for pain -Warm compresses on area -Regular diet -Follow up with PCP in one week -Follow up with surgery in one week ROS: Constitutional: Alert, Denies weight loss, fever and chills. HEENT: Denies changes in vision and hearing. Respiratory: Denies shortness of breath and cough Cardiovascular: Denies chest discomfort or palpitations GI: abdominal pain on left flank over surgical site, Denies nausea, vomiting and diarrhea. : Denies dysuria and urinary frequency. Musculoskeletal: Denies myalgias and joint pain Skin: Denies rash and pruritus. Neurological: Denies dizziness, headache, vision or hearing problems Physical Exam: Gen: 39-year-old female in mild distress Skin: Warm, dry, normal color and texture, no rash. HEENT: Normocephalic atraumatic, mucous membranes moist and pink. Neck: Cervical and supraclavicular nodes normal without enlargement, trachea is midline, thyroid gland is normal without masses. Pulmonary: Clear to auscultation and percussion bilaterally. Cardiac: Regular rate and rhythm. No murmur Abdomen: Soft, nontender, nondistended, bowel sounds present all 4 quadrants, no guarding, no rigidity, no organomegaly. Pain localized on left flank over the surgical incision,no warmth or drainage from the YOU drain location. Extremities: No cyanosis, clubbing, left mid abdomen tenderness Neuro: Cranial nerves II through XII grossly intact, normal affect and speech, no focal motor deficits. Condition at Discharge: Stable Final Diagnosis/Problems List # Acute abdominal pain likely due to Infection of the surgical site. # Acute abdominal pain likely due post removal of YUO drainage. #Infection of the surgical site (Status Post bariatric surgery in [place]) #Ruled out Pneumoperitoneum #Status Post bariatric surgery (in [place]) #Obesity Discharge Disposition: Home SNF Discharge Will this Physician continue t: No Discharge Instruct/Medications Diet: Regular Activity: No Restrictions, As Tolerated Follow Up/Referral: Follow up with surgery in 1 week Follow up with PCP in 1 week Medications: Augmentin 875/125mg po bid x 5 days. Naproxen 500mg po BID PRN for pain Scheduled Amoxicillin & Pot Clavulanate (Augmentin Tablet), 875 MG PO BID Scheduled PRN Naproxen (Naprosyn Tablet), 1 TAB PO BID PRN Discharge Statement: Goals of care discussions, more than 35 minute spent. Code status:Full code Case discussed with Dr. Flower Plan discussed with: Patient, patient agrees with discharge plan. "Patient was advised to return to the ER or call 911 if any headaches, dizziness, shortness of breath, chest pain, abdominal pain, bleeding, fevers, or worsening of medical condition. Patient was counseled about treatment plan, medications, possible side effects, patientverbalized understanding. All questions were answered to the best of my ability. This discharge took greater then 30 minutes in planning, reviewing documentation, counseling the patient, and discussing with other team members." ASSESSMENT ASSESSMENT Assessment Acute abdominal pain Status post bariatric surgery ( done in [place]) Infection of surgical site ( surgery done in [place]) Pneumoperitoneo ruled out Obesity ABDELRAHMAN AGUIRRE RESIDENT Nov 26, 2024 16:12
== END 2024-11-26 16:13 | disposition home or self-care (01) | DRG 252 ==
LOC: ER 18:40 → OVERFLOW 11-25 00:12 → WEST WING 11-25 03:30
PROVIDERS: ADMIT Student in an Organized Health Care Education/Training Program; ATTEND Student in an Organized Health Care Education/Training Program
DX: K95.81 Infection due to other bariatric procedure (principal); E66.9 Obesity, unspecified; Z68.31 Body mass index [BMI] 31.0-31.9, adult; Z98.891 History of uterine scar from previous surgery; Z79.899 Other long term (current) drug therapy; Z83.3 Family history of diabetes mellitus; Z82.49 Family history of ischemic heart disease and other diseases of the circulatory system; Z98.84 Bariatric surgery status; Y84.8 Other medical procedures as the cause of abnormal reaction of the patient, or of later complication, without mention of misadventure at the time of the procedure; Y92.89 Other specified places as the place of occurrence of the external cause
CPT/HCPCS: 36415; 74177; 74246; 80048; 80053; 81001; 83735; 84132; 85025; 85610; 85730; 86850; 86900; 86901; 96374; 96375; G0378; J2405; J2470; J2543; J3480